=== PATIENT | female | born 1980 | race Caucasian/White ===

== ENCOUNTER 2017-02-18 05:01 | Emergency (ER) | payer MEDICAID ==
[~2017-02-18] VITALS: Ht 162.6 cm; Wt 87.5 kg
[~2017-02-18 05:01] MED LIST: BUPR-75 PO; CYCL-319 PO; DIAZ-90 PO; HYDR-762 PO; HYDR-906 PO; IBUP800T25 PO; ONDA4TAB35 PO; PRED20TA PO; RANI-270; RANI150T9 PO
[2017-02-18 05:08] VITALS: Ht 162.6 cm; Wt 87.5 kg
[2017-02-18 05:33] VITALS: TEMP 98.4
[2017-02-18 05:42] LABS: ADD SCAN DIFF NO
[2017-02-18 05:51] LABS: BASOPHILS % 0.4 % (0.0-2.0); EOSINOPHILS # 0.2 10^3/ul (0.0-0.5); EOSINOPHILS % 2.6 % (0.0-7.0); HEMATOCRIT 40.6 % (37.0-47.0); HEMOGLOBIN 13.4 g/dl (12.0-16.0); LYMPHOCYTES # 2.4 10^3/ul (0.8-2.9); LYMPHOCYTES % 25.2 % (15.0-51.0); MEAN CORPUSCULAR HEMOGLOBIN 28.6 pg (29.0-33.0); MEAN CORPUSCULAR VOLUME 86.8 fl (82.0-101.0); MEAN PLATELET VOLUME 9.7 fl (7.4-10.4); MONOCYTE # 0.8 10^3/ul (0.3-0.9); MONOCYTES % 8.9 % (0.0-11.0); NEUTROPHIL # 5.8 10^3/ul (1.6-7.5); NEUTROPHILS % 62.5 % (39.0-77.0); PLATELET COUNT 274 10^3/UL (140-415); RED BLOOD COUNT 4.68 10^6/ul (4.20-5.40); RED CELL DISTRIBUTION WIDTH 13.2 % (11.5-14.5); WHITE BLOOD COUNT 9.3 10^3/ul (4.8-10.8)
[2017-02-18 05:58] LABS: ALBUMIN 3.8 g/dl (3.3-4.9); CHLORIDE 106 mmol/L (97-110); INR 0.91; PROTIME 12.3 Sec (12.2-14.2); SODIUM 139 mmol/L (135-144)
[2017-02-18 05:59] LABS: PARTIAL THROMBOPLASTIN TIME 27.4 Sec (25.0-35.0); POTASSIUM 4.3 mmol/L (3.5-5.1)
[2017-02-18 06:01] LABS: ALANINE AMINOTRANSFERASE 24 IU/L (13-69); ALBUMIN/GLOBULIN RATIO 1.35; ALKALINE PHOSPHATASE 76 IU/L (42-121); ANION GAP 14 (8-16); ASPARTATE AMINO TRANSFERASE 18 IU/L (15-46); BILIRUBIN,INDIRECT 0.1 mg/dl (0-1.1); BILIRUBIN,TOTAL 0.1 mg/dl (0.2-1.3); BLOOD UREA NITROGEN 10 mg/dl (7-20); CARBON DIOXIDE 23 mmol/L (21-31); CREATININE 0.74 mg/dl (0.44-1.00); GLUCOSE 110 mg/dl (70-220); TOTAL PROTEIN 6.6 g/dl (6.1-8.1)
[2017-02-18 06:02] LABS: CALCIUM 8.9 mg/dl (8.4-10.2)
[2017-02-18 06:10] LABS: B-TYPE NATRIURETIC PEPTIDE 41 PG/ML (0-125)
--- NOTE | 2017-02-18 06:17 | RADRPT ---
PROCEDURE: XR Chest. CLINICAL INDICATION: Chest pain TECHNIQUE: A single AP view of the chest was obtained. COMPARISON: Chest x-ray dated 08/01/2014 FINDINGS: No focal airspace opacification, pleural effusion or pneumothorax is seen. The cardiomediastinal si lhouette is within normal limits for size. The osseous structures are unremarkable. IMPRESSION: No radiographic evidence of acute cardiopulmonary disease. RPTAT: HH .Manju Kapoor MD, MD Date Time Electronically viewed and signed by .Manju Kapoor MD, MD on 02/18/2017 06:17 .G/
[2017-02-18 06:19] LABS: TROPONIN-I < 0.012 ng/ml (0.00-0.12)
[2017-02-18] MEDS ORDERED: KETOROLAC 30 MG INJ IV STA (07:01)
[2017-02-18 08:09] LABS: D-DIMER 409.98 ng/ml (<460)
--- NOTE | 2017-02-18 08:46 | ERD ---
ER Documentation Chief Complaint Date/Time DATE: 02/18/17 TIME: 08:40 Chief Complaint stabbing cp to left chest with radiation to neck HPI 36-year-old female presenting with chest pain that started at 2 AM and woke her up from sleep. She also had pain like this yesterday that started around 6 PM while she was sitting in the car, which resolved. She states then it is in the left upper chest, radiating up her anterior left neck. Described as burning, intermittent, lasts only a few seconds. Not worse with deep inspiration or anything else. Nothing else seems to make it better. It self resolved within seconds. She also complains of some numbness in her left arm diffusely, however no weakness. She denies any vision disturbance, recent neck or head injury, shoulder injury, fever, chills, cough. No history of blood clots. No recent immobilization, surgery. She has had pain like this in the past. ROS All systems reviewed and are negative except as per history of present illness. Medications Home Meds Active Scripts Diazepam* (Valium*) 5 Mg Tablet, 5 MG PO Q8 Y for MUSCLE SPASMS, #10 TAB Prov:NELA HIDALGO PA-C 07/20/16 Ibuprofen* (Motrin*) 800 Mg Tab, 800 MG PO Q6H Y for PAIN AND OR ELEVATED TEMP, #30 TAB Prov:NELA HIDALGO PA-C 07/20/16 Prednisone* (Prednisone*) 20 Mg Tab, 40 MG PO DAILY for 4 Days, TAB Prov:JULIO SCOTT DO 07/06/16 Cyclobenzaprine Hcl* (Cyclobenzaprine Hcl*) 10 Mg Tablet, 10 MG PO TID, #15 TAB Prov:JULIO SCOTT DO 07/06/16 Hydrocodone/Acetaminophen (Spring 5-325 Tablet) 1 Each Tablet, 1 TAB PO Q6H Y for PAIN, #15 TAB Prov:JULIO SCOTT DO 07/06/16 Ondansetron Hcl* (Zofran* ODT) 4 mg -ODT Tab.disper, 4 MG PO Q6 Y for NAUSEA AND /OR VOMITING, #30 TAB Prov:THERESA GAY MD 09/07/15 Hydrocodone Bit-Acetaminophen* (Spring*) 10-325 Mg Tablet, 1 TAB PO Q6 Y for PAIN , #7 TAB Prov:THERESA GAY MD 09/07/15 Ranitidine Hcl* (Zantac*) 150 Mg Tablet, 150 MG PO BID Y for GERD, #30 TAB Prov:TASHA GARDUNO 07/26/15 Reported Medications Bupropion Hcl* (Wellbutrin XL*) 150 Mg Tab.sr.24h, 150 MG PO BID Y for depression, TAB.SA 07/26/15 Ranitidine Hcl (Zantac) 150 Mg Tablet 08/27/12 Allergies Allergies: Coded Allergies: No Known Drug Allergy (Verified Allergy, Mild, 07/06/16) PMhx/Soc History of Surgery: Yes (gallbladder removal/ tubal ligation) Anesthesia Reaction: No Hx Neurological Disorder: No Hx Respiratory Disorders: No Hx Cardiac Disorders: No Hx Psychiatric Problems: Yes (depression) Hx Miscellaneous Medical Probl: Yes (GERD) Hx Alcohol Use: No Hx Substance Use: No Hx Tobacco Use: No Smoking Status: Never smoker FmHx Family History: coronary disease (father in older age), diabetes (father) Physical Exam Vitals Vital Signs Date Time Temp Pulse Resp B/P Pulse Ox O2 Delivery O2 Flow Rate FiO2 02/18/17 05:33 98.4 114 16 126/81 97 Room Air 02/18/17 05:08 98.4 69 16 118/84 97 Physical Exam Const: No apparent distress, nontoxic Head: Atraumatic , no temporal tenderness Eyes: Normal Conjunctiva, PERRLA, EOMI ENT: Normal External Ears, Nose and Mouth. Neck: Full range of motion. No meningismus. No JVD Resp: Clear to auscultation bilaterally Cardio: No chest wall tenderness to palpation, Regular rate and rhythm, no murmurs. 2+ radial pulses, equal bilaterally. 2+ DP and PT pulses, equal bilaterally. Abd: Soft, non tender, non distended. Normal bowel sounds Skin: No petechiae or rashes Back: No midline or flank tenderness Ext: No cyanosis, or edema. No calf tenderness. Neur: Awake and alert Psych: Normal Mood and Affect Result Diagram: 02/18/17 0532 02/18/17 0532 Results 24 hrs Laboratory Tests Test 02/18/17 05:32 02/18/17 05:35 White Blood Count 9.310^3/ul Red Blood Count 4.6810^6/ul Hemoglobin 13.4g/dl Hematocrit 40.6% Mean Corpuscular Volume 86.8fl Mean Corpuscular Hemoglobin 28.6pg Mean Corpuscular Hemoglobin Concent 33.0g/dl Red Cell Distribution Width 13.2% Platelet Count 00037^3/UL Mean Platelet Volume 9.7fl Neutrophils % 62.5% Lymphocytes % 25.2% Monocytes % 8.9% Eosinophils % 2.6% Basophils % 0.4% Nucleated Red Blood Cells % 0.0/100WBC Neutrophils # 5.810^3/ul Lymphocytes # 2.410^3/ul Monocytes # 0.810^3/ul Eosinophils # 0.210^3/ul Basophils # 0.010^3/ul Nucleated Red Blood Cells # 0.010^3/ul Prothrombin Time 12.3Sec Prothrombin Time Ratio 1.0 INR International Normalized Ratio 0.91 Activated Partial Thromboplast Time 27.4Sec Sodium Level 139mmol/L Potassium Level 4.3mmol/L Chloride Level 106mmol/L Carbon Dioxide Level 23mmol/L Anion Gap 14 Blood Urea Nitrogen 10mg/dl Creatinine 0.74mg/dl Glucose Level 110mg/dl Calcium Level 8.9mg/dl Total Bilirubin 0.1mg/dl Direct Bilirubin 0.00mg/dl Indirect Bilirubin 0.1mg/dl Aspartate Amino Transf (AST/SGOT) 18IU/L Alanine Aminotransferase (ALT/SGPT) 24IU/L Alkaline Phosphatase 76IU/L Troponin I < 0.012ng/ml B-Type Natriuretic Peptide 41PG/ML Total Protein 6.6g/dl Albumin 3.8g/dl Globulin 2.80g/dl Albumin/Globulin Ratio 1.35 D-Dimer 409.98ng/ml D-Dimer Comment Current Medications Medications (Trade) Dose Ordered Sig/Natalie Route PRN Reason Start Time Stop Time Status Last Admin Dose Admin Ketorolac Tromethamine (Toradol) 30 mg ONCE STAT IV 02/18/17 07:01 02/18/17 07:04 DC 02/18/17 07:30 Procedures/MDM EMERGENT LABS AND DIAGNOSTIC STUDIES: Lab Results above were reviewed and interpreted by me. CBC and CMP unremarkable Troponin within normal limits D-dimer within normal limits 12-lead EKG was interpreted by Shahriar Hernandez MD: Normal Sinus Rhythm Normal axis Normal intervals No acute ST or T wave changes suggestive of acute ischemia or STEMI. Radiology Results as interpreted by Radiology below were reviewed by Erik Hernandez MD: Chest x-ray shows no acute disease Initial Nursing notes reviewed. Previous Medical Records requested via the Electronic Health Record. EMERGENCY DEPARTMENT COURSE / MEDICAL DECISION MAKING: Patient is presenting with left-sided atypical chest pain lasting only a few seconds, unprovoked. Vitals were within normal limits and she remained hemodynamically stable while in the ED. With regard to her chest pain, I have a low suspicion for pulmonary embolism as patient is low risk and her d-dimer is negative. I also have a low suspicion for aortic dissection or acute coronary syndrome. There is no evidence of pneumothorax or pneumonia on chest x-ray. This is less likely pericarditis. With regard to her headache, I really low suspicion for intracranial hemorrhage, increased intracranial pressure, or meningitis. Patient's thoracic symptoms have stabilized while in the department and are stable for outpatient follow up. Exam and work up not consistent w/ ischemia, arrhythmia, PE or dissection. Return precautions were discussed at length. She stated she would follow-up with her primary care doctor in the next 2 days if her symptoms continue. Patient's blood pressure was elevated (>120/80) but appears stable without evidence of hypertensive emergency or urgency. The patient was counseled about the risks of hypertension and urged to pursue outpatient monitoring and therapy within a week with their primary care physician. Departure Diagnosis: Primary Impression: Intermittent left-sided chest pain Additional Impression: Temporal headache Condition: Stable Patient Instructions: Self-Care for Headaches, Chest Pain, Uncertain Cause Additional Instructions: See your doctor in the next 2 days for a follow-up appointment. If any of your symptoms are getting worse or if you develop any new worrisome symptoms, return to the ER immediately. CAMILO HERNANDEZ MD Feb 18, 2017 08:46
[2017-02-18 09:00] VITALS: BP 104/83; PULSE 88; RESP 16
== END 2017-02-18 09:20 | disposition home or self-care (01) ==
LOC: E/R 05:01
DX: R07.9 Chest pain, unspecified (principal); R40.2252 Coma scale, best verbal response, oriented, at arrival to emergency department; R51 Headache; R40.2142 Coma scale, eyes open, spontaneous, at arrival to emergency department; R40.2362 Coma scale, best motor response, obeys commands, at arrival to emergency department
CPT/HCPCS: 71010; 80053; 83880; 84484; 85025; 85378; 85610; 85730; 93005; 96374; J1885; Z7502